=== PATIENT | female | born 1975 | race Caucasian/White ===

== ENCOUNTER 2016-03-10 14:11 | Emergency (ER) | payer OTHER, SELFPAY ==
--- NOTE | 2016-03-10 16:05 | EDDOCDS ---
Physician Documentation [facility] Name: Jyoti Gallegos Age: 40 yrs Sex: Female : 1975 Arrival Date: 03/10/2016 Time: 14:11 Bed TR7 Private MD: Disposition: 03/10/16 15:26 Discharged to Home/Self Care. Impression: Anxiety disorder, unspecified, Panic disorder [episodic paroxysmal anxiety] without agoraphobia, Elevated blood-pressure reading, without diagnosis of hypertension, Chronic serous otitis media, bilateral. - Condition is Stable. - Discharge Instructions: Panic Attacks, Hypertension, [id number], Serous Otitis Media. - Prescriptions for Hydroxyzine HCl 50 mg Oral Tablet - take 1 tablet by ORAL route every 8 hours As needed; 20 tablet. azelastine 137 mcg (0.1 %) Nasal Aerosol, [place] - spray 2 spray by INTRANASAL route 2 times per day each nostril; 1 bottle. - Medication Reconciliation, Local Pharmacy Hours form. - Follow up: Sheridan Collier; When: 03/14/2016; Reason: Further diagnostic work-up, Recheck today's complaints, Continuance of care. - Problem is an ongoing problem. - Symptoms are unchanged. Historical: - Allergies: Aspirin; - Home Meds: 1. Claritin-D 12 Hour 5-120 mg Oral Tb12 1 tab 2 times per day (Last dose: 03/09/2016 08:21) - PMHx: allergies; Heart Murmur; Asthma; - PSHx: Tubal ligation; - Social history: Smoking status: Patient uses tobacco products, current every day smoker. No barriers to communication noted, The patient speaks fluent Sinhala, Speaks appropriately for age, Patient uses alcohol only on a social basis. - Family history: Not pertinent. - : The pt / caregiver states he / she is not on anticoagulants. Home medication list is obtained from the patient. - Exposure Risk Screening:: None identified. 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 3 in. (160.02 cm) (R); Pain 3/10; 15:17 BP 190 / 92 LA Sitting (man/reg); jb5 14:13 Body Mass Index 18.78 (48.08 kg, 160.02 cm) ct3 MDM: 15:01 Recheck B/P ordered. btw 15:29 Financial registration complete. 15:36 [facility] Payment Agreement was scanned into [employer] and attached to record. Signatures: Adiel Smith, RN RN bcMichelle Matthews, Reg Reg lg Cornelio Marrufo PA PA btw Mayda Hathaway, RN RN ttb The chart was reviewed and I authenticate all verbal orders and agree with the evaluation and treatment provided.Attachments: 15:36 [facility] [place] Payment Agreement lg MTDD
--- NOTE | 2016-03-10 16:05 | EDDOCDS ---
Nurse's Notes [facility] Name: Jyoti Gallegos Age: 40 yrs Sex: Female : 1975 Arrival Date: 03/10/2016 Time: 14:11 Bed TR7 Private MD: Diagnosis: Anxiety disorder, unspecified;Panic disorder [episodic paroxysmal anxiety] without agoraphobia;Elevated blood-pressure reading, without diagnosis of hypertension;Chronic serous otitis media, bilateral Presentation: 03/10 14:17 Presenting complaint: Patient states: "tunnel vision" for 2 hours today. Sent from ttb urgent care d/t hypertension. Intermittent vision changes -- accompanied by headaches and circumoral tingling. Adult Sepsis Screening: The patient does not have new or worsening altered mentation. Patient's respiratory rate is less than 22. Systolic blood pressure is greater than 100. Patient has a qSOFA score of 0- Negative Sepsis Screen. Suicide/Homicide risk assessment- the patient denies having any suicidal and/or homicidal ideations and does not present with any other emotional, behavioral or mental health complaints. Status: Patient is not a field service specialist or dependent. Transition of care: patient was not received from another setting of care. 14:17 Acuity: ISMA Level 3 ttb 14:17 Method Of Arrival: Walkin/Carried/Asstd ttb Triage Assessment: 14:21 General: Appears in no apparent distress, well nourished, well groomed, Behavior is ttb appropriate for age, cooperative, pleasant. Pain: Location: headache 3/10 to front of head. HIV screening NA for this visit Offered previously. Neurological: Level of Consciousness is awake, alert. Neurological: Denies weakness dizziness, Reports headache "tunnel vision". Cardiovascular: Chest pain is denied. Respiratory: No deficits noted. Airway is patent Denies cough, shortness of breath. GI: Reports nausea, Denies vomiting. Derm: Skin is normal. Injury Description: No known injury. 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 Claritin-D 12 Hour 5-120 mg Oral Tb12 1 tab 2 times per day (Last dose: 03/09/2016 08:21) - PMHx: allergies; Heart Murmur; Asthma; - PSHx: Tubal ligation; - Social history: Smoking status: Patient uses tobacco products, current every day smoker. No barriers to communication noted, The patient speaks fluent Slovak, Speaks appropriately for age, Patient uses alcohol only on a social basis. - Family history: Not pertinent. - : The pt / caregiver states he / she is not on anticoagulants. Home medication list is obtained from the patient. - Exposure Risk Screening:: None identified. Screenin:30 Screening information is obtained from the patient. Fall risk: No risks identified. ttb Assistance ADL's: requires no assistance with activities of daily living. Abuse/DV Screen: The patient / caregiver reports he/she is: not in a situation that causes fear, pain or injury. Nutritional screening: No deficits noted. Advance Directives: Currently, there is no health care proxy. There is no active DNR order. home support is adequate. Assessment: 15:30 General: Appears in no apparent distress, well nourished, well groomed, Behavior is ttb appropriate for age, cooperative, pleasant. Pain: Location: slight pain behind eyes. Neurological: Level of Consciousness is awake, alert, Moves all extremities. Gait is steady, Speech is normal, Facial symmetry appears normal, Pupils are PERRLA. Neurological: Reports circumoral tingling at times. Cardiovascular: Chest pain is denied. Respiratory: Airway is patent Respiratory effort is even, unlabored, Denies cough. GI: Reports nausea, only with "spells". Derm: Skin is normal. Vital Signs: 14:13 BP 167 / 88; Pulse 116; Resp 18; Temp 98.1(O); Pulse Ox 100% on R/A; Weight 48.08 kg ct3 (R); Height 5 ft. 3 in. (160.02 cm) (R); Pain 3/10; 15:17 BP 190 / 92 LA Sitting (man/reg); jb5 14:13 Body Mass Index 18.78 (48.08 kg, 160.02 cm) ct3 Vitals: 14:13 Log In Time: March 10, 2016 at 14:10. ct3 ED Course: 14:12 Patient visited by Lizzette Rodgers PCA. ct3 14:12 Patient moved to Waiting ct3 14:13 Patient visited by Lizzette Rodgers PCA. ct3 14:14 Patient moved to Pre RCE ct3 14:20 Triage Initiated ttb 14:22 Patient visited by Mayda Hathaway RN. ttb 14:29 Patient moved to Triage 3 ttb 14:34 Cornelio Mrarufo PA is PHCP. btw 14:34 Timbo Machuca MD is Attending Physician. btw 14:34 Patient visited by Cornelio Marrufo PA. btw 15:17 Patient visited by More Cuevas PCA. jb5 15:26 Sheridan Collier is Referral Physician. btw 15:30 The patient / caregiver is instructed regarding the plan of care and ED course. ttb Accompanied by Family Member, Significant Other, Patient has correct armband on for positive identification. 15:30 No IV's were initiated during this patient's visit. No procedures done that require ttb assistance. 15:35 Patient name changed from Jyoti\\S\\A.\\S\\Gallegos\\S\\ to Jyoti\\S\\A\\S\\Gallegos. EDMS 15:36 [facility] Payment Agreement was scanned into [employer] and attached to record. lg 15:37 Patient moved to TR7 ttb Order Results: There are currently no results for this order. Outcome: 15:26 Discharge ordered by Provider. btw 15:30 Discharge Assessment: Patient awake, alert and oriented x 3. No cognitive and/or ttb functional deficits noted. Patient verbalized understanding of disposition instructions. Patient awake and alert. patient administered narcotics - no. The following High Risk Discharge criteria are identified: None. Discharged to home ambulatory, with family, with significant other. Condition: good Condition: stable Condition: improved. Discharge instructions given to patient, family, significant other, Instructed on discharge instructions, follow up and referral plans. medication usage, diet, Demonstrated understanding of instructions, medications, monitor sodium, relaxation techniques Pt was receptive of discharge instructions/ teaching. Prescriptions given X 2. No special radiology studies were completed. Property :Personal belongings accompany Pt. 16:04 Patient left the ED. [facility] Signatures: Dispatcher [employer] EDMS Adiel Smith RN RN Michelle Matthews, Reg Reg lg More Cuevas, TERRAZZO TILE MAKER TERRAZZO TILE MAKER jb5 Cornelio Marrufo PA PA btw Lizzette Rodgers TERRAZZO TILE MAKER TERRAZZO TILE MAKER ct3 Rivas, Mayda, RN RN ttb MTDD
--- NOTE | 2016-03-12 17:05 | EDDOCDS ---
Nurse's Notes [facility] Name: Jyoti Gallegos Age: 40 yrs Sex: Female : 1975 Arrival Date: 03/10/2016 Time: 14:11 Bed TR7 Private MD: Diagnosis: Anxiety disorder, unspecified;Panic disorder [episodic paroxysmal anxiety] without agoraphobia;Elevated blood-pressure reading, without diagnosis of hypertension;Chronic serous otitis media, bilateral Presentation: 03/10 14:17 Presenting complaint: Patient states: "tunnel vision" for 2 hours today. Sent from ttb urgent care d/t hypertension. Intermittent vision changes -- accompanied by headaches and circumoral tingling. Adult Sepsis Screening: The patient does not have new or worsening altered mentation. Patient's respiratory rate is less than 22. Systolic blood pressure is greater than 100. Patient has a qSOFA score of 0- Negative Sepsis Screen. Suicide/Homicide risk assessment- the patient denies having any suicidal and/or homicidal ideations and does not present with any other emotional, behavioral or mental health complaints. Status: Patient is not a patient services rep or dependent. Transition of care: patient was not received from another setting of care. 14:17 Acuity: ISMA Level 3 ttb 14:17 Method Of Arrival: Walkin/Carried/Asstd ttb Triage Assessment: 14:21 General: Appears in no apparent distress, well nourished, well groomed, Behavior is ttb appropriate for age, cooperative, pleasant. Pain: Location: headache 3/10 to front of head. HIV screening NA for this visit Offered previously. Neurological: Level of Consciousness is awake, alert. Neurological: Denies weakness dizziness, Reports headache "tunnel vision". Cardiovascular: Chest pain is denied. Respiratory: No deficits noted. Airway is patent Denies cough, shortness of breath. GI: Reports nausea, Denies vomiting. Derm: Skin is normal. Injury Description: No known injury. 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 Claritin-D 12 Hour 5-120 mg Oral Tb12 1 tab 2 times per day (Last dose: 03/09/2016 08:21) - PMHx: allergies; Heart Murmur; Asthma; - PSHx: Tubal ligation; - Social history: Smoking status: Patient uses tobacco products, current every day smoker. No barriers to communication noted, The patient speaks fluent Kyrgyz, Speaks appropriately for age, Patient uses alcohol only on a social basis. - Family history: Not pertinent. - : The pt / caregiver states he / she is not on anticoagulants. Home medication list is obtained from the patient. - Exposure Risk Screening:: None identified. Screenin:30 Screening information is obtained from the patient. Fall risk: No risks identified. ttb Assistance ADL's: requires no assistance with activities of daily living. Abuse/DV Screen: The patient / caregiver reports he/she is: not in a situation that causes fear, pain or injury. Nutritional screening: No deficits noted. Advance Directives: Currently, there is no health care proxy. There is no active DNR order. home support is adequate. Assessment: 15:30 General: Appears in no apparent distress, well nourished, well groomed, Behavior is ttb appropriate for age, cooperative, pleasant. Pain: Location: slight pain behind eyes. Neurological: Level of Consciousness is awake, alert, Moves all extremities. Gait is steady, Speech is normal, Facial symmetry appears normal, Pupils are PERRLA. Neurological: Reports circumoral tingling at times. Cardiovascular: Chest pain is denied. Respiratory: Airway is patent Respiratory effort is even, unlabored, Denies cough. GI: Reports nausea, only with "spells". Derm: Skin is normal. Vital Signs: 14:13 BP 167 / 88; Pulse 116; Resp 18; Temp 98.1(O); Pulse Ox 100% on R/A; Weight 48.08 kg ct3 (R); Height 5 ft. 3 in. (160.02 cm) (R); Pain 3/10; 15:17 BP 190 / 92 LA Sitting (man/reg); jb5 14:13 Body Mass Index 18.78 (48.08 kg, 160.02 cm) ct3 Vitals: 14:13 Log In Time: March 10, 2016 at 14:10. ct3 ED Course: 14:12 Patient visited by Lizzette Rodgers PCA. ct3 14:12 Patient moved to Waiting ct3 14:13 Patient visited by Lizzette Rodgers PCA. ct3 14:14 Patient moved to Pre RCE ct3 14:20 Triage Initiated ttb 14:22 Patient visited by Mayda Hathaway RN. ttb 14:29 Patient moved to Triage 3 ttb 14:34 Cornelio Marrufo PA is PHCP. btw 14:34 Timbo Machuca MD is Attending Physician. btw 14:34 Patient visited by Cornelio Marrufo PA. btw 15:17 Patient visited by More Cuevas PCA. jb5 15:26 Sheridan Collier is Referral Physician. btw 15:30 The patient / caregiver is instructed regarding the plan of care and ED course. ttb Accompanied by Family Member, Significant Other, Patient has correct armband on for positive identification. 15:30 No IV's were initiated during this patient's visit. No procedures done that require ttb assistance. 15:35 Patient name changed from Jyoti\\S\\A.\\S\\Gallegos\\S\\ to Jyoti\\S\\A\\S\\Gallegos. EDMS 15:36 [facility] Payment Agreement was scanned into [employer] and attached to record. lg 15:37 Patient moved to TR7 ttb 0204 10:24 T-Sheet-- Draft Copy was scanned into [employer] and attached to record. mm15 Order Results: There are currently no results for this order. Outcome: 0203 15:26 Discharge ordered by Provider. btw 15:30 Discharge Assessment: Patient awake, alert and oriented x 3. No cognitive and/or ttb functional deficits noted. Patient verbalized understanding of disposition instructions. Patient awake and alert. patient administered narcotics - no. The following High Risk Discharge criteria are identified: None. Discharged to home ambulatory, with family, with significant other. Condition: good Condition: stable Condition: improved. Discharge instructions given to patient, family, significant other, Instructed on discharge instructions, follow up and referral plans. medication usage, diet, Demonstrated understanding of instructions, medications, monitor sodium, relaxation techniques Pt was receptive of discharge instructions/ teaching. Prescriptions given X 2. No special radiology studies were completed. Property :Personal belongings accompany Pt. 16:04 Patient left the ED. zoltan Signatures: Dispatcher [employer] EDMS Adiel Smith RN RN Michelle Matthews, Reg Reg lg More Cuevas PCA PRINCIPAL ARCHITECTURAL FIRM jb5 Cornelio Marrufo PA PA btw Lizzette Rodgers, PRINCIPAL ARCHITECTURAL FIRM PRINCIPAL ARCHITECTURAL FIRM ct3 Mayda Hathaway, RN RN ttb Miguel Goode mm15 Chart Complete MTDD
--- NOTE | 2016-03-12 17:05 | EDDOCDS ---
Physician Documentation [facility] Name: Jyoti Gallegos Age: 40 yrs Sex: Female : 1975 Arrival Date: 03/10/2016 Time: 14:11 Bed TR7 Private MD: Disposition: 03/10/16 15:26 Discharged to Home/Self Care. Impression: Anxiety disorder, unspecified, Panic disorder [episodic paroxysmal anxiety] without agoraphobia, Elevated blood-pressure reading, without diagnosis of hypertension, Chronic serous otitis media, bilateral. - Condition is Stable. - Discharge Instructions: Panic Attacks, Hypertension, Wczf-hi-Sink, Serous Otitis Media. - Prescriptions for Hydroxyzine HCl 50 mg Oral Tablet - take 1 tablet by ORAL route every 8 hours As needed; 20 tablet. azelastine 137 mcg (0.1 %) Nasal Aerosol, [place] - spray 2 spray by INTRANASAL route 2 times per day each nostril; 1 bottle. - Medication Reconciliation, Local Pharmacy Hours form. - Follow up: Sheridan Collier; When: 03/14/2016; Reason: Further diagnostic work-up, Recheck today's complaints, Continuance of care. - Problem is an ongoing problem. - Symptoms are unchanged. Historical: - Allergies: Aspirin; - Home Meds: 1. Claritin-D 12 Hour 5-120 mg Oral Tb12 1 tab 2 times per day (Last dose: 03/09/2016 08:21) - PMHx: allergies; Heart Murmur; Asthma; - PSHx: Tubal ligation; - Social history: Smoking status: Patient uses tobacco products, current every day smoker. No barriers to communication noted, The patient speaks fluent Malay, Speaks appropriately for age, Patient uses alcohol only on a social basis. - Family history: Not pertinent. - : The pt / caregiver states he / she is not on anticoagulants. Home medication list is obtained from the patient. - Exposure Risk Screening:: None identified. 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 3 in. (160.02 cm) (R); Pain 3/10; 15:17 BP 190 / 92 LA Sitting (man/reg); jb5 14:13 Body Mass Index 18.78 (48.08 kg, 160.02 cm) ct3 MDM: 15:01 Recheck B/P ordered. btw 15:29 Financial registration complete. lg 15:36 [facility] Payment Agreement was scanned into [employer] and attached to record. lg 03/11 10:24 T-Sheet-- Draft Copy was scanned into [employer] and attached to record. mm15 Signatures: Adiel Smith, RN RN Michelle Goodman, Reg Reg lg Cornelio Marrufo PA PA btw Mayda Hathaway RN RN Miguel Ruelas mm15 The chart was reviewed and I authenticate all verbal orders and agree with the evaluation and treatment provided.Attachments: 03/10 15:36 [facility] Payment Agreement lg 03/11 10:24 T-Sheet-- Draft Copy mm15 Chart Complete MTDD
--- NOTE | 2016-03-12 17:05 | EDDOCDS ---
Physician Documentation [facility] Name: Jyoti Gallegos Age: 40 yrs Sex: Female : 1975 Arrival Date: 03/10/2016 Time: 14:11 Bed TR7 Private MD: Disposition: 03/10/16 15:26 Discharged to Home/Self Care. Impression: Anxiety disorder, unspecified, Panic disorder [episodic paroxysmal anxiety] without agoraphobia, Elevated blood-pressure reading, without diagnosis of hypertension, Chronic serous otitis media, bilateral. - Condition is Stable. - Discharge Instructions: Panic Attacks, Hypertension, Teyu-eq-Atga, Serous Otitis Media. - Prescriptions for Hydroxyzine HCl 50 mg Oral Tablet - take 1 tablet by ORAL route every 8 hours As needed; 20 tablet. azelastine 137 mcg (0.1 %) Nasal Aerosol, [place] - spray 2 spray by INTRANASAL route 2 times per day each nostril; 1 bottle. - Medication Reconciliation, Local Pharmacy Hours form. - Follow up: Sheridan Collier; When: 03/14/2016; Reason: Further diagnostic work-up, Recheck today's complaints, Continuance of care. - Problem is an ongoing problem. - Symptoms are unchanged. Historical: - Allergies: Aspirin; - Home Meds: 1. Claritin-D 12 Hour 5-120 mg Oral Tb12 1 tab 2 times per day (Last dose: 03/09/2016 08:21) - PMHx: allergies; Heart Murmur; Asthma; - PSHx: Tubal ligation; - Social history: Smoking status: Patient uses tobacco products, current every day smoker. No barriers to communication noted, The patient speaks fluent French, Speaks appropriately for age, Patient uses alcohol only on a social basis. - Family history: Not pertinent. - : The pt / caregiver states he / she is not on anticoagulants. Home medication list is obtained from the patient. - Exposure Risk Screening:: None identified. 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 3 in. (160.02 cm) (R); Pain 3/10; 15:17 BP 190 / 92 LA Sitting (man/reg); jb5 14:13 Body Mass Index 18.78 (48.08 kg, 160.02 cm) ct3 MDM: 15:01 Recheck B/P ordered. btw 15:29 Financial registration complete. lg 15:36 [facility] Payment Agreement was scanned into [employer] and attached to record. lg 03/11 10:24 T-Sheet-- Draft Copy was scanned into [employer] and attached to record. mm15 Signatures: Adiel Smith, RN RN Michelle Goodman, Reg Reg lg Cornelio Marrufo PA PA btw Mayda Hathaway RN RN Miguel Ruelas mm15 The chart was reviewed and I authenticate all verbal orders and agree with the evaluation and treatment provided.Attachments: 03/10 15:36 [facility] Payment Agreement lg 03/11 10:24 T-Sheet-- Draft Copy mm15 Chart Complete MTDD
== END 2016-03-10 16:04 | disposition home or self-care (01) ==
LOC: M ED 14:11
DX: R03.0 Elevated blood-pressure reading, without diagnosis of hypertension (principal); F41.0 Panic disorder [episodic paroxysmal anxiety]; J45.909 Unspecified asthma, uncomplicated; R01.1 Cardiac murmur, unspecified; Z79.899 Other long term (current) drug therapy; Z88.6 Allergy status to analgesic agent; F17.210 Nicotine dependence, cigarettes, uncomplicated

== ENCOUNTER 2019-08-09 01:54 | Emergency (ER) | payer SELFPAY ==
[~2019-08-09] VITALS: Ht 160 cm; Wt 47.7 kg
[2019-08-09] MEDS ORDERED: SUCCINYLCHOLINE 100 MG/5 ML SYRINGE (J0330) ONE (01:55)
[2019-08-09] MEDS ORDERED: ETOMIDATE INJ 20MG/10ML VIAL ONE (01:55)
--- NOTE | 2019-08-09 02:53 | REPVR ---
PROCEDURE INFORMATION: Exam: CT Head without Contrast Exam date and time: 08/09/19 (2:34am) Age: 44 years old Clinical indication: Fall. Initial encounter. Concussion / head injury. Consciousness not specified. TECHNIQUE: Imaging protocol: Computed tomography of the head without contrast. Radiation optimization: All CT scans at this facility use at least one of these dose optimization techniques: automated exposure control; mA and/or kV adjustment per patient size (includes targeted exams where dose is matched to clinical indication); or iterative reconstruction. COMPARISON: No relevant prior studies available FINDINGS: Brain: Hyperdensity along the falx (especially the posterior falx) and perhaps along the tentorium, also -- possible acute subdural hemorrhage. No mass effect. No midline shift. Ventricles: Normal. No ventriculomegaly. Bones/joints: Unremarkable. No acute fracture. Sinuses: No air-fluid levels. Partially opacified ethmoid sinuses. Mastoid air cells: Visualized mastoid air cells are well aerated. Soft tissues: Unremarkable. IMPRESSION: Possible acute subdural hemorrhage, along the falx and along the tentorium, bilaterally. Clinical correlation is needed. Follow-up evaluation is suggested -- MRI scan; repeat CT scan in perhaps 6-7 hours. Electronically signed by: Kiara Bob On 08/09/2019 02:52:47 AM
[2019-08-09] MEDS ORDERED: PROPOFOL 1,000 MG/100 ML VIAL As Ordered ONE (03:28)
[2019-08-09] MEDS: propofoL 1,000 MG in IV 1 EA IV SCH ×3 (03:46→04:30)
[2019-08-09 04:03] LABS: HEMATOCRIT 47.8 % (36.0-47.0); HEMOGLOBIN 16.3 g/dl (12.0-15.5); MEAN CORPUSCULAR HEMOGLOBIN 32.3 pg (27.0-33.0); MEAN CORPUSCULAR HGB CONC 34.1 g/dl (32.0-36.5); MEAN CORPUSCULAR VOLUME 94.8 fl (80.0-96.0); PLATELET COUNT, AUTOMATED 233 10^3/uL (150-450); RED BLOOD COUNT 5.04 10^6/uL (4.00-5.40); WHITE BLOOD COUNT 8.8 10^3/uL (4.0-10.0)
[2019-08-09 04:07] LABS: INR 0.98; PROTHROMBIN TIME 12.7 SECONDS (11.8-14.0)
[2019-08-09 04:11] LABS: BLOOD UREA NITROGEN 7 MG/DL (7-18); CALCIUM LEVEL 8.6 MG/DL (8.5-10.1); CARBON DIOXIDE LEVEL 28 MEQ/L (21-32); CHLORIDE LEVEL 109 MEQ/L (98-107); CREATININE FOR GFR 0.79 MG/DL (0.55-1.30); ETHYL ALCOHOL (ETHANOL) 0.265 % (0.000-0.010); GLOMERULAR FILTRATION RATE > 60.0 (>58); GLUCOSE, FASTING 88 MG/DL (70-100); POTASSIUM SERUM 3.6 MEQ/L (3.5-5.1); SODIUM LEVEL 147 MEQ/L (136-145)
[2019-08-09] MEDS ORDERED: SUCCINYLCHOLINE INJ 200 MG/10 ML VIAL (J0330) IV ONE (05:15)
[2019-08-09] MEDS ORDERED: ETOMIDATE INJ 20MG/10ML VIAL IV ONE (05:15)
[2019-08-09] MEDS ORDERED: propofoL 200 MG/20 ML VIAL IV ONE (05:15)
[2019-08-09 05:30] VITALS: BP 110/73
--- NOTE | 2019-08-09 07:28 | ECGEPIP ---
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
--- NOTE | 2019-08-09 07:30 | REP ---
Clinical: Trauma. Post intubation . Comparison: None . Findings: Endotracheal tube 3 cm above the danielle. Nasogastric tube courses below left hemidiaphragm in satisfactory position. The mediastinum and cardiac silhouette are stable and within normal limits for portable technique. The lung loya are clear without acute consolidation, effusion, or pneumothorax. Skeletal structures are intact. Impression: No acute cardiopulmonary process appreciated. Electronically Signed by Mateo Greco MD 08/09/2019 07:22 A
== END 2019-08-09 05:38 | disposition short-term general hospital (02) ==
LOC: M ED 01:54
DX: S06.5X9A Traumatic subdural hemorrhage with loss of consciousness of unspecified duration, initial encounter (principal); W01.0XXA Fall on same level from slipping, tripping and stumbling without subsequent striking against object, initial encounter; I16.1 Hypertensive emergency; R41.82 Altered mental status, unspecified; F10.920 Alcohol use, unspecified with intoxication, uncomplicated; F17.200 Nicotine dependence, unspecified, uncomplicated; R00.0 Tachycardia, unspecified; Z88.6 Allergy status to analgesic agent; Y92.9 Unspecified place or not applicable; Y93.9 Activity, unspecified; Y99.9 Unspecified external cause status
CPT/HCPCS: 31500; 51702; 70450; 71045; 80048; 82803; 85027; 85610; 93005; 99285; G0480; J0330; U0002

== ENCOUNTER → 2019-09-15 | Outpatient (REF) | payer OTHER, SELFPAY ==
[2019-10-29 16:08] LABS: ALBUMIN 4.4 GM/DL (3.2-5.2); ALT/SGPT 26 U/L (12-78); BILIRUBIN,TOTAL 0.3 MG/DL (0.2-1.0); BLOOD UREA NITROGEN 10 MG/DL (7-18); CALCIUM LEVEL 9.2 MG/DL (8.5-10.1); CARBON DIOXIDE LEVEL 31 MEQ/L (21-32); CHLORIDE LEVEL 105 MEQ/L (98-107); CHOLESTEROL LEVEL 221 MG/DL (<200); CHOLESTEROL RISK RATIO 3.745 (<5); GLOMERULAR FILTRATION RATE > 60.0 (>58); GLUCOSE, FASTING 83 MG/DL (70-100); HDL CHOLESTEROL 59 MG/DL (>40); LDL CHOLESTEROL 143 MG/DL (<100); NON-HDL-C 162 MG/DL; POTASSIUM SERUM 3.8 MEQ/L (3.5-5.1); SODIUM LEVEL 139 MEQ/L (136-145); TOTAL PROTEIN 7.5 GM/DL (6.4-8.2); TRIGLYCERIDES LEVEL 95 MG/DL (<150)
== END ==
LOC: M SFHCPLAZ 11:57
PROVIDERS: ATTEND Nurse Practitioner Adult Health
DX: I10 Essential (primary) hypertension (principal); Z13.220 Encounter for screening for lipoid disorders; Z13.29 Encounter for screening for other suspected endocrine disorder

== ENCOUNTER → 2020-02-03 | Outpatient (REF) | payer OTHER | LOC: M SFHCWAGY 16:53 | PROVIDERS: ATTEND Nurse Practitioner Family | DX: Z12.4 Encounter for screening for malignant neoplasm of cervix (principal); N88.8 Other specified noninflammatory disorders of cervix uteri ==

== ENCOUNTER → 2020-02-13 | Outpatient (CLI) | payer OTHER ==
--- NOTE | 2020-02-13 16:06 | REPMRS ---
Patient History The patient states she had a clinical breast exam in 01/2020 Baseline Mammogram Family history of colorectal cancer at age 70 in father, ovarian cancer at age 42 in paternal grandmother. Digital Woman Screen Mammo: February 13, 2020 - Exam #: [id number] Bilateral CC and MLO view(s) were taken. Technologist: Caroline Lyle, Technologist No prior studies available for comparison. FINDINGS: The breast tissue is extremely dense which could obscure a lesion on mammography. The Volpara volumetric breast density category is: D. There is a fairly symmentric extremely dense fibroglandular pattern in the breast parenchyma. There is no evidence of dominant mass, architectural distortion, or grouped microcalcification typical of malignancy. 3-D tomosynthesis shows no additional findings. Assessment: BI-RADS/ACR category 1 mammogram. Negative Mammogram. Recommendation Routine screening mammogram of both breasts in 1 year (for women over age 40). This patient's [facility] Lifetime Breast Cancer RIsk is estimated at 9.2 %. This mammogram was interpreted with the aid of an FDA-approved computer-aided dectection system. Electronically Signed By: Mick Beltran MD 02/13/20 [id number]
--- NOTE | 2020-02-13 17:55 | REP ---
INDICATION: R10.2 PELVIC PAIN COMPARISON: None. TECHNIQUE: Transabdominal pelvic ultrasound followed by transvaginal examination for better evaluation of the endometrium and adnexa with color Doppler evaluation of the ovaries. FINDINGS: Bladder is unremarkable and measures 12.1 x 9.8 x 6.5 cm (403 cc). Heterogeneous myomatous retroverted uterus measures 9.6 x 5.7 x 6.5 cm. The endometrial complex measures 7.6 mm thickness. Most prominent discrete fibroids measure 1.9 x 1.5 x 1.5 cm anteriorly, 2.3 x 2.7 x 1.8 cm anterior/serosal, and 1.8 x 1.9 x 0.9 cm posterior intramural. Bilateral ovaries are normal in vascularity without evidence for torsion. Right ovary measures 5.1 x 2.7 x 3.6 cm (RI 0.64) and includes 2.3 x 2.9 x 2.6 cm and 2.4 x 2.2 x 1.7 cm complex cysts; left ovary measures 2.3 x 1.1 x 2.4 cm (RI 0.50). Complex pelvic fluid is suggested. IMPRESSION: 1. Heterogeneous myomatous uterus. 2. Complex right ovarian cysts and complex fluid in the pelvis. Clinical correlation is required. Findings are nonspecific. If the patient remains acutely symptomatic contrast-enhanced CT of the abdomen and pelvis may be warranted for further investigation. <Electronically signed by Mateo Greco > 02/13/20 [id number]
== END ==
LOC: M WHC 14:26
PROVIDERS: ATTEND Nurse Practitioner Family
DX: Z12.31 Encounter for screening mammogram for malignant neoplasm of breast (principal); R10.2 Pelvic and perineal pain; Z80.0 Family history of malignant neoplasm of digestive organs; N83.201 Unspecified ovarian cyst, right side

== ENCOUNTER → 2020-02-16 | Outpatient (REF) | payer OTHER | LOC: M PLALAB 14:47 | PROVIDERS: ATTEND Nurse Practitioner Family | DX: N83.291 Other ovarian cyst, right side (principal) ==

== ENCOUNTER → 2020-04-01 | Outpatient (REF) | payer OTHER ==
[2020-04-01 19:10] LABS: ALBUMIN 4.6 GM/DL (3.2-5.2); ALT/SGPT 23 U/L (12-78); BILIRUBIN,TOTAL 0.5 MG/DL (0.2-1.0); BLOOD UREA NITROGEN 11 MG/DL (7-18); CALCIUM LEVEL 9.4 MG/DL (8.5-10.1); CARBON DIOXIDE LEVEL 30 MEQ/L (21-32); CHLORIDE LEVEL 102 MEQ/L (98-107); CHOLESTEROL LEVEL 162 MG/DL (<200); CHOLESTEROL RISK RATIO 2.612 (<5); CREATININE FOR GFR 0.79 MG/DL (0.55-1.30); GLOMERULAR FILTRATION RATE > 60.0 (>58); GLUCOSE, FASTING 87 MG/DL (70-100); HDL CHOLESTEROL 62 MG/DL (>40); LDL CHOLESTEROL 86 MG/DL (<100); NON-HDL-C 100 MG/DL; POTASSIUM SERUM 3.9 MEQ/L (3.5-5.1); SODIUM LEVEL 138 MEQ/L (136-145); TOTAL PROTEIN 7.5 GM/DL (6.4-8.2); TRIGLYCERIDES LEVEL 72 MG/DL (<150)
== END ==
LOC: M SFHCPLAZ 13:44
PROVIDERS: ATTEND Nurse Practitioner Adult Health
DX: R79.89 Other specified abnormal findings of blood chemistry (principal); I10 Essential (primary) hypertension

== ENCOUNTER → 2020-06-16 | Outpatient (CLI) | payer OTHER ==
--- NOTE | 2020-06-17 04:07 | REPPI ---
INDICATION: M25.511 PAIN IN RIGHT SHOULDER COMPARISON: None. TECHNIQUE: Internal rotation, external rotation, and Y view. FINDINGS: No acute fracture or dislocation. The acromioclavicular and glenohumeral joints are intact. No periarticular calcifications or degenerative changes are appreciated. Sub acromial space is normal. Surrounding soft tissues are unremarkable. IMPRESSION: Essentially normal age-appropriate right shoulder radiographs. <Electronically signed by Mateo Greco > 06/17/20 [id number]
== END ==
LOC: M PLAIMG 13:28
PROVIDERS: ATTEND Nurse Practitioner Adult Health
DX: M25.511 Pain in right shoulder (principal)

== ENCOUNTER → 2020-08-01 | Outpatient (CLI) | payer OTHER ==
[~2020-08-01] MED LIST: AMLO1TAB25; B-1100TA2; D31000TA2 PO; HYDR-3490; VITA400C83 PO; ZINC1TAB2 PO
== END ==
LOC: M LABSMTC 08:16
PROVIDERS: ATTEND Anesthesiology
DX: Z20.828 Contact with and (suspected) exposure to other viral communicable diseases (principal); Z11.59 Encounter for screening for other viral diseases

== ENCOUNTER 2020-08-06 07:52 | Day surgery (SDC) | payer OTHER ==
[~2020-08-06] VITALS: Ht 160 cm; Wt 47.6 kg
[~2020-08-06 07:52] MED LIST changes: +NS 1,000 ML IV ONE
--- NOTE | 2020-08-06 10:04 | ROOR ---
Patient Name: Jyoti Gallegos Procedure Date: 08/06/2020 9:34 AM Date of : 1975 Age: 45 Room: [id number] Gender: Female Note Status: Finalized Procedure: Colonoscopy Indications: Screening in patient at increased risk: Family history of 1st-degree relative with colorectal cancer, " i feel a cyst in the perianal area" Providers: Jay Landaverde MD Referring MD: Sheridan Collier NP Requesting Provider: Medicines: Monitored Anesthesia Care Complications: No immediate complications. Procedure: Pre-Anesthesia Assessment: - The heart rate, respiratory rate, oxygen saturations, blood pressure, adequacy of pulmonary ventilation, and response to care were monitored throughout the procedure. The Colonoscope was introduced through the anus and advanced to 10 cm into the ileum. The colonoscopy was performed without difficulty. The patient tolerated the procedure well. The quality of the bowel preparation was good. Findings: The perianal exam findings include 3 - 4 mm pilonidal cyst. Internal hemorrhoids were found during retroflexion. The hemorrhoids were medium-sized. The colon (entire examined portion) was redundant. The entire examined colon appeared normal. The terminal ileum appeared normal. Impression: - 3 - 4 mm pilonidal cyst found on perianal exam. - Internal hemorrhoids. - The entire examined colon is normal. - The examined portion of the ileum was normal. - No specimens collected. Recommendation: - Repeat colonoscopy in 5 years for screening purposes. - The pilonidal cyst is tiny at present. If the pilonidal cyst returns and is bothersome, then would recommend surgical excision. 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 All rights reserved. The codes documented in this report are preliminary and upon linotype operator review may be revised to meet current compliance requirements. Jay Landaverde MD Jay Landaverde MD 08/06/2020 10:03:51 AM Electronically signed by Jay Landaverde MD Number of Addenda: 0 Note Initiated On: 08/06/2020 9:34 AM Estimated Blood Loss: Estimated blood loss: none.
[2020-08-06] MEDS ORDERED: propofoL 200 MG/20 ML VIAL As Ordered ONE (10:09)
[2020-08-06] MEDS ORDERED: LIDOCAINE 2% 100MG/5ML SDV (FOR ANES.) As Ordered ONE (10:09)
[2020-08-06 10:17] VITALS: BP 158/94
== END 2020-08-06 10:26 | disposition home or self-care (01) ==
LOC: M OPP 07:52
PROVIDERS: ATTEND Internal Medicine Gastroenterology
DX: Z12.11 Encounter for screening for malignant neoplasm of colon (principal); Z80.0 Family history of malignant neoplasm of digestive organs; K64.8 Other hemorrhoids; Q43.8 Other specified congenital malformations of intestine; L05.91 Pilonidal cyst without abscess; Z79.899 Other long term (current) drug therapy; Z88.8 Allergy status to other drugs, medicaments and biological substances; F17.210 Nicotine dependence, cigarettes, uncomplicated

== ENCOUNTER → 2021-04-05 | Outpatient (CLI) | payer OTHER ==
[~2021-04-05] MED LIST changes: -D31000TA2 PO; -NS 1,000 ML IV ONE; +VITA100093 PO
[2021-04-05 15:58] LABS: HEMATOCRIT 43.2 % (36.0-47.0); HEMOGLOBIN 14.5 g/dl (12.0-15.5); MEAN CORPUSCULAR HEMOGLOBIN 30.5 pg (27.0-33.0); MEAN CORPUSCULAR HGB CONC 33.6 g/dl (32.0-36.5); MEAN CORPUSCULAR VOLUME 90.8 fl (80.0-96.0); PLATELET COUNT, AUTOMATED 215 10^3/uL (150-450); RED BLOOD COUNT 4.76 10^6/uL (4.00-5.40); WHITE BLOOD COUNT 9.4 10^3/uL (4.0-10.0)
[2021-04-05 16:37] LABS: ALBUMIN 4.2 GM/DL (3.2-5.2); ALT/SGPT 24 U/L (12-78); BILIRUBIN,TOTAL 0.4 MG/DL (0.2-1.0); BLOOD UREA NITROGEN 11 MG/DL (7-18); CALCIUM LEVEL 9.3 MG/DL (8.5-10.1); CARBON DIOXIDE LEVEL 28 MEQ/L (21-32); CHLORIDE LEVEL 107 MEQ/L (98-107); CHOLESTEROL LEVEL 155 MG/DL (<200); CHOLESTEROL RISK RATIO 2.627 (<5); CREATININE FOR GFR 0.76 MG/DL (0.55-1.30); GLOMERULAR FILTRATION RATE > 60.0 (>58); GLUCOSE, FASTING 85 MG/DL (70-100); HDL CHOLESTEROL 59 MG/DL (>40); LDL CHOLESTEROL 77 MG/DL (<100); NON-HDL-C 96 MG/DL; POTASSIUM SERUM 4.5 MEQ/L (3.5-5.1); SODIUM LEVEL 139 MEQ/L (136-145); TOTAL PROTEIN 7.2 GM/DL (6.4-8.2); TRIGLYCERIDES LEVEL 97 MG/DL (<150)
== END ==
LOC: M PLALAB 12:28
PROVIDERS: ATTEND Nurse Practitioner Adult Health
DX: Z00.00 Encounter for general adult medical examination without abnormal findings (principal); I10 Essential (primary) hypertension; R79.89 Other specified abnormal findings of blood chemistry

== ENCOUNTER → 2021-09-26 | Outpatient (CLI) | payer OTHER ==
[2021-09-26 15:41] LABS: HEMATOCRIT 42.4 % (36.0-47.0); HEMOGLOBIN 13.9 g/dl (12.0-15.5); MEAN CORPUSCULAR HEMOGLOBIN 30.5 pg (27.0-33.0); MEAN CORPUSCULAR HGB CONC 32.8 g/dl (32.0-36.5); MEAN CORPUSCULAR VOLUME 93.2 fl (80.0-96.0); PLATELET COUNT, AUTOMATED 200 10^3/uL (150-450); RED BLOOD COUNT 4.55 10^6/uL (4.00-5.40); WHITE BLOOD COUNT 6.3 10^3/uL (4.0-10.0)
[2021-09-26 16:30] LABS: ALBUMIN 3.8 GM/DL (3.2-5.2); ALT/SGPT 17 U/L (12-78); BILIRUBIN,TOTAL 0.3 MG/DL (0.2-1.0); BLOOD UREA NITROGEN 8 MG/DL (7-18); CARBON DIOXIDE LEVEL 29 MEQ/L (21-32); CHLORIDE LEVEL 108 MEQ/L (98-107); CHOLESTEROL LEVEL 122 MG/DL (<200); CHOLESTEROL RISK RATIO 2.103 (<5); CREATININE FOR GFR 0.74 MG/DL (0.55-1.30); FERRITIN 11 NG/ML (8-252); FREE T4 0.91 NG/DL (0.76-1.46); GLOMERULAR FILTRATION RATE > 60.0 (>58); GLUCOSE, FASTING 102 MG/DL (70-100); HDL CHOLESTEROL 58 MG/DL (>40); IRON (FE) 83 UG/DL (50-170); LDL CHOLESTEROL 53 MG/DL (<100); NON-HDL-C 64 MG/DL; POTASSIUM SERUM 4.2 MEQ/L (3.5-5.1); SODIUM LEVEL 138 MEQ/L (136-145); THYROID STIMULATING HORMONE 0.956 uIU/ML (0.358-3.740); TOTAL IRON BINDING CAPACITY 319 UG/DL (250-450); TOTAL PROTEIN 6.8 GM/DL (6.4-8.2); TRIGLYCERIDES LEVEL 53 MG/DL (<150)
[2021-09-26 16:55] LABS: VITAMIN B12 LEVEL 422 PG/ML (247-911)
== END ==
LOC: M PLALAB 12:37
PROVIDERS: ATTEND Nurse Practitioner Adult Health
DX: I10 Essential (primary) hypertension (principal); L65.9 Nonscarring hair loss, unspecified; R68.89 Other general symptoms and signs

== ENCOUNTER → 2021-10-31 | Outpatient (CLI) | payer OTHER ==
[2021-10-31 15:18] LABS: HEMATOCRIT 44.5 % (36.0-47.0); HEMOGLOBIN 14.9 g/dl (12.0-15.5); MEAN CORPUSCULAR HEMOGLOBIN 31.4 pg (27.0-33.0); MEAN CORPUSCULAR HGB CONC 33.5 g/dl (32.0-36.5); MEAN CORPUSCULAR VOLUME 93.7 fl (80.0-96.0); PLATELET COUNT, AUTOMATED 181 10^3/uL (150-450); RED BLOOD COUNT 4.75 10^6/uL (4.00-5.40); WHITE BLOOD COUNT 6.9 10^3/uL (4.0-10.0)
[2021-10-31 16:11] LABS: ALBUMIN 4.1 GM/DL (3.2-5.2); ALT/SGPT 21 U/L (12-78); BILIRUBIN,TOTAL 0.4 MG/DL (0.2-1.0); BLOOD UREA NITROGEN 10 MG/DL (7-18); CALCIUM LEVEL 9.1 MG/DL (8.5-10.1); CARBON DIOXIDE LEVEL 29 MEQ/L (21-32); CHLORIDE LEVEL 109 MEQ/L (98-107); FREE THYROXINE INDEX 2.8 % (1.3-4.8); GLOMERULAR FILTRATION RATE > 60.0 (>58); GLUCOSE, FASTING 75 MG/DL (70-100); IRON (FE) 138 UG/DL (50-170); POTASSIUM SERUM 4.6 MEQ/L (3.5-5.1); SODIUM LEVEL 141 MEQ/L (136-145); T UPTAKE 33 % (30-39); THYROXINE (T4) 8.4 UG/DL (4.5-12.0); TOTAL PROTEIN 7.2 GM/DL (6.4-8.2)
[2021-10-31 16:34] LABS: TOTAL 25(OH) VITAMIN D 33.3 NG/ML (30.0-100.0); VITAMIN B12 LEVEL 536 PG/ML (247-911)
[2021-11-02 08:10] LABS: FOLATE 2.8 ng/mL (>3.0)
== END ==
LOC: M PLALAB 12:27
PROVIDERS: ATTEND Nurse Practitioner Family
DX: L82.1 Other seborrheic keratosis (principal); L65.9 Nonscarring hair loss, unspecified

== ENCOUNTER → 2021-11-15 | Outpatient (REF) | payer OTHER | LOC: M PLALAB 17:12 | PROVIDERS: ATTEND Obstetrics & Gynecology | DX: Z12.4 Encounter for screening for malignant neoplasm of cervix (principal) ==

== ENCOUNTER → 2023-06-07 | Outpatient (CLI) | payer BC ==
[2023-06-07 16:12] LABS: HEMATOCRIT 44.6 % (36.0-47.0); HEMOGLOBIN 15.5 g/dl (12.0-15.5); MEAN CORPUSCULAR HEMOGLOBIN 33.6 pg (27.0-33.0); MEAN CORPUSCULAR HGB CONC 34.8 g/dl (32.0-36.5); MEAN CORPUSCULAR VOLUME 96.7 fl (80.0-96.0); PLATELET COUNT, AUTOMATED 212 10^3/uL (150-450); RED BLOOD COUNT 4.61 10^6/uL (4.00-5.40); WHITE BLOOD COUNT 7.5 10^3/uL (4.0-10.0)
[2023-06-07 16:40] LABS: ALBUMIN 3.8 G/DL (3.2-5.2); ALKALINE PHOSPHATASE 52 U/L (46-116); ALT/SGPT 16 U/L (7.0-40); AST/SGOT 15 U/L (<34); BILIRUBIN,TOTAL 0.4 MG/DL (0.3-1.2); BLOOD UREA NITROGEN 7 MG/DL (9-23); CALCIUM LEVEL 9.1 MG/DL (8.5-10.1); CARBON DIOXIDE LEVEL 29 MMOL/L (20-31); CHLORIDE LEVEL 107 MMOL/L (98-107); CHOLESTEROL LEVEL 167 MG/DL (<200); CHOLESTEROL RISK RATIO 2.98 (<5); CREATININE FOR GFR 0.69 MG/DL (0.55-1.30); GLOMERULAR FILTRATION RATE > 60.0 (>51); GLUCOSE, FASTING 76 MG/DL (60-100); IRON (FE) 59 UG/DL (50-170); LDL CHOLESTEROL 94.6 MG/DL (<100); SODIUM LEVEL 141 MMOL/L (136-145); TOTAL PROTEIN 6.6 G/DL (5.7-8.2); TRIGLYCERIDES LEVEL 82 MG/DL (<150)
[2023-06-07 16:43] LABS: FERRITIN 43.3 NG/ML (7.3-270.7)
== END ==
LOC: M PLALAB 13:10
PROVIDERS: ATTEND Nurse Practitioner Adult Health
DX: I10 Essential (primary) hypertension (principal); R68.89 Other general symptoms and signs; R79.89 Other specified abnormal findings of blood chemistry; Z72.89 Other problems related to lifestyle; M54.50 Low back pain, unspecified

== ENCOUNTER → 2023-07-10 | Outpatient (CLI) | payer BC | LOC: M WHC 09:49 | PROVIDERS: ATTEND Nurse Practitioner Adult Health | DX: R10.11 Right upper quadrant pain (principal) ==

== ENCOUNTER → 2023-08-07 | Outpatient (CLI) | payer BC ==
[~2023-08-07] MED LIST changes: +GASTROGRAFIN SOLUTION 30ML As Ordered ONE; +ISOVUE-370 76% 100ML VIAL As Ordered ONE
== END ==
LOC: M RAD 13:22
PROVIDERS: ATTEND Nurse Practitioner Adult Health
DX: R10.11 Right upper quadrant pain (principal); R63.4 Abnormal weight loss
CPT/HCPCS: 74177; Q9963; Q9967

== ENCOUNTER → 2023-08-17 | Outpatient (CLI) | payer BC ==
[~2023-08-17] MED LIST changes: -GASTROGRAFIN SOLUTION 30ML As Ordered ONE; -ISOVUE-370 76% 100ML VIAL As Ordered ONE
== END ==
LOC: M PLAIMG 13:37
PROVIDERS: ATTEND Nurse Practitioner Adult Health
DX: I10 Essential (primary) hypertension (principal); R79.89 Other specified abnormal findings of blood chemistry

== ENCOUNTER → 2023-10-18 | Outpatient (CLI) | payer BC | LOC: M RAD 14:33 | PROVIDERS: ATTEND Nurse Practitioner Adult Health | DX: Z12.2 Encounter for screening for malignant neoplasm of respiratory organs (principal); Z87.891 Personal history of nicotine dependence ==

== ENCOUNTER → 2024-11-11 | Outpatient (CLI) | payer OTHER | LOC: M WHC 10:52 | PROVIDERS: ATTEND Obstetrics & Gynecology | DX: Z12.31 Encounter for screening mammogram for malignant neoplasm of breast (principal); Z53.9 Procedure and treatment not carried out, unspecified reason ==

== ENCOUNTER → 2024-11-11 | Outpatient (REF) | payer OTHER ==
[2024-11-13 15:42] LABS: HPV APTIMA Not Detected (Not Detected)
== END ==
LOC: M SFHCWAGY 15:26
PROVIDERS: ATTEND Obstetrics & Gynecology
DX: Z12.4 Encounter for screening for malignant neoplasm of cervix (principal)

== ENCOUNTER → 2024-11-12 | Outpatient (CLI) | payer OTHER | LOC: M RAD 17:01 | PROVIDERS: ATTEND Nurse Practitioner Adult Health | DX: Z12.2 Encounter for screening for malignant neoplasm of respiratory organs (principal); Z87.891 Personal history of nicotine dependence; J43.2 Centrilobular emphysema ==

== ENCOUNTER → 2024-12-04 | Outpatient (CLI) | payer OTHER | LOC: M WHC 12:32 | PROVIDERS: ATTEND Obstetrics & Gynecology | DX: Z12.31 Encounter for screening mammogram for malignant neoplasm of breast (principal); D25.0 Submucous leiomyoma of uterus; R92.333 Mammographic heterogeneous density, bilateral breasts ==

== ENCOUNTER → 2025-01-21 | Outpatient (CLI) | payer OTHER ==
[2025-01-21 17:41] LABS: PLATELET COUNT, AUTOMATED 202 10^3/uL (150-450)
[2025-01-21 18:11] LABS: ALT/SGPT 34 U/L (7.0-40); AST/SGOT 27 U/L (<34); CALCIUM LEVEL 9.9 MG/DL (8.5-10.1); CARBON DIOXIDE LEVEL 31 MMOL/L (20-31); CHLORIDE LEVEL 103 MMOL/L (98-107); CREATININE FOR GFR 0.61 MG/DL (0.55-1.30); GLOMERULAR FILTRATION RATE > 90.0 (>51); POTASSIUM SERUM 4.1 MMOL/L (3.5-5.1); SODIUM LEVEL 140 MMOL/L (136-145)
[2025-01-21 18:12] LABS: FREE T4 1.27 NG/DL (0.89-1.76)
== END ==
LOC: M PLALAB 15:21
PROVIDERS: ATTEND Nurse Practitioner Adult Health
DX: I10 Essential (primary) hypertension (principal); D64.9 Anemia, unspecified; L65.9 Nonscarring hair loss, unspecified; E55.9 Vitamin D deficiency, unspecified

== ENCOUNTER → 2025-01-26 | Outpatient (CLI) | payer OTHER ==
[2025-01-28 15:28] LABS: ERYTHROPOIETIN 4.7 mIU/mL (2.6-18.5)
== END ==
LOC: M PLALAB 14:52
PROVIDERS: ATTEND Nurse Practitioner Adult Health
DX: D75.1 Secondary polycythemia (principal)